=== PATIENT | female | born 1990 | race Hispanic/Latino ===

== ENCOUNTER 2020-04-10 04:17 | Inpatient (IN) | payer OTHER ==
[2020-04-10] MEDS ORDERED: PROMETHAZINE INJ 25 MG/ML AMP IM PRN (04:18)
[2020-04-10] MEDS ORDERED: METHYLERGONOVINE 0.2MG/ML AMP IM PRN (04:18)
[2020-04-10] MEDS ORDERED: Ringers Lactate 1,000 ML IV PRN (04:18)
[2020-04-10] MEDS ORDERED: CARBOPROST TROME 250 MCG/ML IM PRN (04:18)
[2020-04-10] MEDS ORDERED: BUTORPHANOL 1 MG/ML INJ IV PRN (04:18)
--- OUTSIDE RECORDS SUMMARY | 2020-04-10 04:18 | XMS REPORT | Continuity of Care Document ---
:1990 Author Organization [facility] t Address [address] [place] [address] Care Team Providers Name Role Phone Doctor Unassigned, [place] Attending Clinician Unavailable Stefany Rucker Attending Clinician 3, [facility] U[facility] Room Attending Clinician Unavailable Problems This patient has no known problems. Allergies, Adverse Reactions, Alerts This patient has no known allergies or adverse reactions. Medications This patient has no known medications. Procedures This patient has no known procedures. Encounters Start End Encounter Admission Attending Care Care Encounter Source Date/Time Date/Time Type Type Clinicians Facility Department ID 2020-02-03 2020-02-03 Orders Doctor MARES [id number] [id number] 00:00:00 00:00:00 Only UnassignedLAKISHA [id number] [facility] [id number] [id number] 2020-01-18 2020-01-18 Orders Doctor MARES [id number] [id number] 00:00:00 00:00:00 Only UnassignedLAKISHA [id number] [facility] 4.2.7.2.686 [id number] 2019-11-06 2019-11-06 Abstract ÓSCAR Paz [id number] 00:00:00 00:00:00 Marley Mccall CUSTOMER SERVICE SUPERVISOR [id number] [facility] 4.2.7.2.686 MATERNAL [id number] & CHILD [address] [place] [address] 2019-11-03 2019-11-03 Production Supply Equipment Tender 3, [facility]ERS[facility] 1.2.840.11 [id number] 12:57:40 14:55:21 Visit [facility] [id number] [facility] [id number] [id number] 2019-10-19 2019-10-19 Telephone JacksonÓSCAR [id number] 00:00:00 00:00:00 Roshunda R CUSTOMER SERVICE SUPERVISOR [id number] [facility] [id number] MATERNAL [id number] & CHILD 107 [facility] 2019-10-06 2019-10-06 Initial JacksonÓSCAR [id number] 08:42:42 09:32:08 Roshunda R CUSTOMER SERVICE SUPERVISOR [id number] Visit REG[facility]AL [id number] MATERNAL [id number] & CHILD 107 [facility] Results This patient has no known results.
[2020-04-10 04:55] VITALS: BMI 22.3
[2020-04-10] MEDS ORDERED: OXYTOCIN/LR 20 UNIT/1,000 ML BAG IV SCH ×2 (05:00→12:00)
[2020-04-10] MEDS ORDERED: Ringers Lactate 1,000 ML IV SCH (05:00)
[2020-04-10 05:18] LABS: Absolute Lymphocytes (CBC) 1.7 K/uL (0.7-4.9); Basophils % 0.4 % (0-1.3); Hematocrit 33.1 % (36.0-45.0); Lymphocytes % 26.8 % (15.3-44.8); MPV 11.9 fL (7.6-11.3)
[2020-04-10 05:39] LABS: Urine Appearance CLEAR; Urine Bilirubin NEGATIVE (NEG); Urine Blood NEGATIVE (NEG); Urine Color YELLOW; Urine Glucose NEGATIVE (NEG); Urine Protein NEGATIVE (NEG); Urine pH 6.5 (5.0-7.0)
[2020-04-10 05:48] LABS: Urine Microscopic Reflex ORDER UMIC
[2020-04-10 06:06] LABS: Urine Amorphous Sediment 1+ /HPF (NONE SEEN); Urine Bacteria 20-50 /HPF (<20); Urine RBC <5 /HPF (NONE SEEN)
[2020-04-10] MEDS ORDERED: INFLUENZA VACCINE (for 3y+) 0.5 ML DOSE IMVAC ONE (09:00)
--- NOTE | 2020-04-10 09:12 | PREOPHP ---
Date of Admission: 04/10/2020 History Of Present Illness: Donna Marte is a 30-year-old 3, para 2, 39 weeks gestation, fol lowed antepartum, history of herpes, herpes free interval. Baby had been breech for sometime and now converted to vertex and it was decided to proceed before the baby switch positions again. The patie nt is now 1.5 to 2 cm, 60% effaced. Cervix very soft. Rupture of membranes, very light meconium. F HT is normal reactive. Labor talk given. Anticipate more rapid progress once we get into a good fir m labor. Labor talk given. The patient is probably going to go natural, although she knows she has the option of going with an epidural. Family History: Mother with hypertension. Maternal and paternal grandmothers with diabetes and canc er in the maternal and paternal grandmother. No other significant family history. Past Medical History: The patient had right and left hand surgery as a child. Says she is allergic to contrast material and x-rays. Had chlamydia in 2016. Has a history of herpes, but has been on ac yclovir and has no evidence of outbreaks at this point. Medications: Has been on vitamins. Social History: Does not smoke. Physical Examination: HEENT: Clear. Pupils are equal, round, reactive to light and accommodation. Conjunctivae well perf used. No oral, lingual, or buccal lesions. Chest and Lungs: Clear. Heart: Without murmurs, thrills, heaves, or rubs. Breasts: Without masses on previous visits. Abdomen: Term size, although the patient does not have large baby, estimated 6-7 pounds of weight. Extremities: Clear without edema, cyanosis, or clubbing. Assessment/plan: Essentially healthy female at term. History of herpes, herpes free interval, histo ry of breech and now converted to vertex for vaginal delivery sometime later today. JAIME/MODL Voice ID: [id number]
[2020-04-10] MEDS ORDERED: LIDOCAINE 1% MPF 30 ML VIAL ONE (10:04)
[2020-04-10] MEDS ORDERED: DOCUSATE NA/SENNA CONC 1 TAB PO PRN (11:08)
[2020-04-10] MEDS ORDERED: BISACODYL 10 MG RECTAL SUPP RC PRN (11:08)
[2020-04-10] MEDS ORDERED: IBUPROFEN 600 MG TAB PO PRN (11:08)
[2020-04-10] MEDS ORDERED: ACETAMINOPHEN 500 MG TAB PO PRN (11:08)
[2020-04-10] MEDS ORDERED: DIPHENHYDRAMINE 25 MG TAB/CAP PO PRN (11:08)
[2020-04-10] MEDS ORDERED: Oxycodone HCl/Acetaminophen 1 TAB TAB PO PRN ×2 (11:08)
--- NOTE | 2020-04-10 11:33 | OP ---
Surgeon: Amador Renteria MD Donna Marte is a 30-year-old 3, para 2, 39 weeks gestation for labor induction. Pros and co ns discussed thoroughly prior to admission. Rh positive, immune to Rubella. COVID negative. Strep negative. 1.5 to 2 cm this morning rupture of membranes, clear fluid. The patient went rapidly to c omplete second stage of 10 minutes or less, spontaneous vaginal delivery of an estimated 6+ pound fem bailey. Apgars 9 and 9. No episiotomy. No lacerations. Shoulder cord. Schultze delivery of the plac enta, which was inspected and noted to be intact and normal, 300 cc blood loss. The patient tolerate d all procedures well. Final Diagnoses: Term intrauterine , vaginal delivery. JAIME/REBEL Voice ID: [id number] Report ID: [id number]
[2020-04-10 22:49] LABS: RPR (Rapid Plasma Reagin) NON-REACT (NON-REACT)
[2020-04-11] MEDS ORDERED: Ringers Lactate 1,000 ML IV ONE (04:46)
--- NOTE | 2020-04-11 08:20 | DS ---
Hospital Course: Donna Marte is a 30-year-old 3, para 2, 39 weeks gestation, delivered a 6 pounds 4 ounces female, Apgars 9 and 9. No episiotomy. No laceration. Schultze delivery of the aurelia centa was inspected and noted to be intact and normal. 300 cc or less blood loss. Rh positive, immu ne to rubella, negative strep. Negative COVID. ; afebrile, ambulating, and voiding. Loch ia is normal. No complaints or problems. Return to my office in 6 weeks for followup. To report an y temperature elevation of 100 degrees or greater, severe pain, heavy bleeding, or any other type of abnormalities. Offered Tdap immunization. Final Diagnoses: Term intrauterine , 39 weeks. Vaginal delivery. Tdap offered. JAIME/REBEL Voice ID: [id number] Report ID: [id number]
[2020-04-11 11:24] VITALS: BP 94/61; TEMP 97.3
[2020-04-13 20:27] LABS: HBsAG Nonreactive (Nonreactive)
== END 2020-04-11 15:10 | disposition home or self-care (01) | DRG 806 ==
LOC: 2ND-WC 04:17
PROVIDERS: ADMIT Specialist; ATTEND Specialist
PROC: 10E0XZZ Delivery of Products of Conception, External Approach (ICD-10-PCS; principal; 2020-04-10)
PROC: 10907ZC Drainage of Amniotic Fluid, Therapeutic from Products of Conception, Via Natural or Artificial Opening (ICD-10-PCS; 2020-04-10)
PROC: 3E033VJ Introduction of Other Hormone into Peripheral Vein, Percutaneous Approach (ICD-10-PCS; 2020-04-10)
DX: O98.32 Other infections with a predominantly sexual mode of transmission complicating childbirth (principal); O99.834 Other infection carrier state complicating childbirth; Z37.0 Single live birth; Z3A.49 Greater than 42 weeks gestation of pregnancy; Z20.822 Contact with and (suspected) exposure to COVID-19
CPT/HCPCS: 36415; 81003; 81015; 85025; 86592; 86850; 86900; 86901; 87340; J0595; J2210; J2550; J2590; J7120; U0003